=== PATIENT | female | born 1960 | race Asian ===

== ENCOUNTER 2017-09-09 22:08 | Emergency (ER) | payer OTHER, MEDICAID ==
[~2017-09-09] VITALS: Ht 154.9 cm; Wt 80.3 kg
[2017-09-09] MEDS ORDERED: cefTRIAXone 1GM/10ml IVPUSH 10 ML IV ONE (23:00)
[2017-09-09] MEDS ORDERED: VANCOMYCIN 1GM/250ML 250 ML IV ONE (23:00)
[2017-09-09 23:33] LABS: Basophils # (auto) 0 uL; Hemoglobin 10.3 g/dL (12.2-16.2); Lymphocytes # (auto) 1.3 uL; Mean Corpuscular Volume 80.9 fL (80.0-100.0); Monocytes # (auto) 0.6 uL
[2017-09-09 23:34] LABS: Basophils % (auto) 0.7 % (0.0-2.0); Eosinophils # (auto) 0.3 uL; Eosinophils % (auto) 3.9 % (0.0-7.0); Lymphocytes % (auto) 19.1 % (10.0-50.0); Mean Corpuscular Hemoglobin 26.1 pg (28.0-32.0); Mean Corpuscular Hgb Conc. 32.3 g/dL (32.0-36.0); Monocytes % (auto) 8.9 % (0.0-12.0); Neutrophils # (auto) 4.4 uL; Neutrophils % (auto) 67.4 % (37.0-80.0); Platelet Count (auto) 443 10^3/uL (140-450); Red Blood Cells 3.95 10^6/uL (4.0-5.20); Red Cell Distribution Width 15.5 % (11.8-14.3); White Blood Cell 6.6 10^3/uL (4.4-10.8)
[2017-09-09 23:50] LABS: Albumin 2.9 g/dL (3.4-5.0); BUN/Creatinine Ratio 21.7; Calcium 8.5 mg/dL (8.5-10.1); INR 0.98 (0.9-1.15); Potassium 3.7 mmol/L (3.5-5.1); Prothrombin Time 10.7 sec (9.37-12.3)
[2017-09-09 23:53] LABS: Bilirubin, Total 0.5 mg/dL (0.2-1.0); Total Protein 6.1 g/dL (6.4-8.2)
[2017-09-10] MEDS ORDERED: HYDROcodone-ACET 5/325MG TAB PO ONE (06:15)
[2017-09-10 10:15] VITALS: BP 140/77
== END 2017-09-10 10:22 | disposition home or self-care (01) ==
LOC: ER 22:08 → EDBD 22:08 → ER 09-10 10:22
DX: L03.115 Cellulitis of right lower limb (principal); I10 Essential (primary) hypertension; R60.9 Edema, unspecified
CPT/HCPCS: 36415; 73700; 80053; 85025; 85610; 85730; 87205; 93971; 96365; 96375; 99285; J3370; 96367; 96374

== ENCOUNTER 2018-08-27 18:28 | Emergency (ER) | payer OTHER, MEDICAID ==
[~2018-08-27] VITALS: Ht 157.5 cm; Wt 77.1 kg
[2018-08-27] MEDS ORDERED: cefTRIAXone SOD 1,000 MG VL IM ONE (22:00)
[2018-08-27] MEDS ORDERED: HYDROcodone-ACET 10/325MG TAB PO ONE (22:00)
[2018-08-27] MEDS ORDERED: methylPREDNISolone SOD SUCC 125 MG/2 ML VL IM ONE (22:00)
[2018-08-27 22:04] VITALS: BP 141/90
[2018-08-27] MEDS ORDERED: HYDROcodone-ACET 10/325MG TAB ONE (22:10)
== END 2018-08-27 22:22 | disposition home or self-care (01) ==
LOC: ER 18:28
DX: J34.1 Cyst and mucocele of nose and nasal sinus (principal); I10 Essential (primary) hypertension
CPT/HCPCS: 70450; 93005; 96372; 99284; J0696; J2930

== ENCOUNTER → 2025-03-25 | Day surgery (SDC) | payer OTHER, MEDICAID ==
[2025-03-19 13:03] LABS: Hematocrit 42.0 % (36.0-46.0); Hemoglobin 14.2 g/dL (12.2-16.2); Mean Corpuscular Hemoglobin 28.4 pg (28.0-32.0); Mean Corpuscular Volume 84.2 fL (80.0-100.0); Nucleated Red Blood Cells % 0.0 %
[2025-03-19 13:09] LABS: Urine Protein, UAD Negative (Negative)
[2025-03-19 13:13] LABS: INR 1.0 (0.9-1.15); Partial Thromboplastin Time 26.8 SEC (24.5-34.5); Prothrombin Time 10.6 sec (9.3-11.8)
[2025-03-19 13:47] LABS: Alanine Aminotransferase 23 U/L (7-40); Albumin 4.1 g/dL (3.2-4.8); Alkaline Phosphatase 91 U/L (46-116); Anion Gap 8 (5-15); BUN/Creatinine Ratio 12.0 (10.0-20.0); Blood Urea Nitrogen 9 mg/dL (9-23); Calcium 9.3 mg/dL (8.7-10.4); Chloride 106 mmol/L (98-107); Glucose 83 mg/dL (74-106); Total Protein 6.6 g/dL (5.7-8.2)
[2025-03-19 14:16] LABS: Bilirubin, Total 1.8 mg/dL (0.2-1.0); Carbon Dioxide 31 mmol/L (20-31); Potassium 3.3 mmol/L (3.5-5.1); Sodium 145 mmol/L (136-145)
[~2025-03-25] VITALS: Ht 154.9 cm; Wt 63.5 kg
[~2025-03-25] MED LIST: CARB25TA79 PO; CHOLCAP4 PO; CLON0.5T3 PO; ESTR0.1C VA; FLUT50AE5 IN; LEVE500T40 PO; LIDOCAINE 2% (LOCAL ANESTH.) PF 5ml SDV ONE; LINA1CAP2 PO; OMEP-448 PO; PROPOFOL 10 MG/ML 20 ML IV ONE; ZOLP10TA PO
[2025-03-25 08:56] VITALS: PULSE 65; RESP 19; TEMP 99.2; O2SAT 92
--- NOTE | 2025-03-25 08:57 | DVHHP2 ---
GI H&P Pre-Op Assessment Date: 03/25/25 Chief complaint: Dysphagia, GERD, melena HPI: per clinic note Past medical history: per clinic note Past surgical history: per clinic note Family history: per clinic note Physical exam: General: NAD, AAOX3 HEENT: PERRL, no scleral icterus, normal hearing, gums without lesions or bleeding, oropharynx clear without erythema or exudate. Neck: Supple without enlargement of the thyroid, or lymphadenopathy. Chest: Normal size and shape, no tenderness, lung carr clear to auscultation and percussion, nonlabored breathing. Heart: RRR, no murmur Abdomen: non-distended, no tenderness to palpation, +BS, no hepatosplenomegaly Extremities: no edema Neurological: CN II-XII intact, sensation intact in all extremities, 5+ strength in all extremities Skin: No rashes, No jaundice Assessment: - Dysphagia, GERD, melena Plan: - EGD - Risks (bleeding, infection, perforation, reaction to sedation medications and cardiopulmonary arrest) and benefit of the procedure were explained to patient. Patient agrees to undergo the procedure. AMAURY RODRIGUEZ MD Mar 25, 2025 08:57
--- NOTE | 2025-03-25 09:01 | DVHOP2 ---
Operative Report DATE OF OPERATION: 03/25/25 PROCEDURE: Upper Endoscopy. PREOPERATIVE INDICATION: The patient is a 64 -year-old female with history of Sydnie fundoplication undergoing endoscopy for dysphagia, GERD, melena. POSTOPERATIVE DIAGNOSES: 1. Antral gastritis 2. Intact Sydnie fundoplication. 3. Possible hiatal hernia from 33-40 cm 4. Irregular GE junction 5. The esophagus was dilated with 52 [place] bougie. PROCEDURE PERFORMED BY: Lenard Perdomo SCOPE: Olympus videoendoscope. ASA CLASS: 3 PREOPERATIVE MEDICATIONS: MAC with Pa ÁLVAREZ PROCEDURE IN DETAIL: After obtaining an informed consent, the patient was placed on her back. The patient was then sedated with the above medications. A bite block was placed between her teeth. The endoscope was then passed through the oropharynx, into the esophagus, and through the stomach and pylorus up to the second and third part of the duodenum. The duodenum was normal in appearance. There was antral gastritis. Antral biopsies were obtained using cold biopsy forceps. The Sydnie fundoplication appears to be intact. There was possible hiatal hernia from 33-40 cm. The GE junction was irregular in appearance at 33 cm. GE junction biopsies were obtained using cold biopsy forceps. The endoscope was then withdrawn. The esophagus was dilated with 52 [place] bougie. The patient tolerated the procedure well without difficulty. COMPLICATIONS : None SPECIMENS: Antral biopsies, GEJ biopsies DISPOSITION: D/C to home PLAN: 1. Await for biopsy result 2. Continue with omeprazole LENARD PERDOMO MD Mar 25, 2025 09:01
--- NOTE | 2025-03-25 09:01 | DVHDS2 ---
Physician Discharge Progress N Final Diagnosis: Antral gastritis, positive hiatal hernia, irregular GE junction Operations or Procedures: Operations or Procedures EGD with cold biopsy and dilation with bougie Condition on Discharge: Good Disposition: Home Discharge Instructions: Diet: Regular Activity: No Restrictions, As Tolerated Medications: Resume with previous home medications Follow Up Care: Discharge Statement: "Patient was advised to return to the ER or call 911 if any headaches, dizziness, shortness of breath, chest pain, abdominal pain, bleeding, fevers, or worsening of medical condition. Patient was counseled about treatment plan, medications, possible side effects, patientverbalized understanding. All questions were answered to the best of my ability. This discharge took greater then 30 minutes in planning, reviewing documentation, counseling the patient, and discussing with other team members." AMAURY RODRIGUEZ MD Mar 25, 2025 09:01
[2025-03-25 09:45] VITALS: BP 143/79; PULSE 61; RESP 16; O2SAT 96
== END | disposition home or self-care (01) ==
LOC: GI 07:22
PROVIDERS: ATTEND Internal Medicine Gastroenterology
DX: R13.10 Dysphagia, unspecified (principal); K29.50 Unspecified chronic gastritis without bleeding; K31.A19 Gastric intestinal metaplasia without dysplasia, unspecified site; K21.9 Gastro-esophageal reflux disease without esophagitis; K92.1 Melena; K44.9 Diaphragmatic hernia without obstruction or gangrene; I10 Essential (primary) hypertension; G20.A1 Parkinson's disease without dyskinesia, without mention of fluctuations; G47.30 Sleep apnea, unspecified; Z86.2 Personal history of diseases of the blood and blood-forming organs and certain disorders involving the immune mechanism; Z87.11 Personal history of peptic ulcer disease; Z90.710 Acquired absence of both cervix and uterus; Z98.891 History of uterine scar from previous surgery; Z98.890 Other specified postprocedural states
CPT/HCPCS: 36415; 43239; 43450; 80053; 81001; 85025; 85610; 85730; 88305; 88342; J2003; J2704; J7030